=== PATIENT | female | born 1955 | race Caucasian/White ===

== ENCOUNTER 2023-03-06 13:11 | Outpatient (CLI) | payer MEDICARE | END 2023-03-06 13:12 | disposition home or self-care (01) | LOC: CSHMAMMO 13:11 | DX: Z12.31 Encounter for screening mammogram for malignant neoplasm of breast (principal); Z80.3 Family history of malignant neoplasm of breast; Z98.82 Breast implant status | CPT/HCPCS: 77063; 77067 ==

== ENCOUNTER 2025-01-06 20:28 | Emergency (ER) | payer MEDICARE ==
[2025-01-06] MEDS ORDERED: diphenhydrAMINE 25 MG CAP ONE (21:00)
== END 2025-01-06 21:05 | disposition home or self-care (01) ==
LOC: CSHERS 20:28
DX: S50.861A Insect bite (nonvenomous) of right forearm, initial encounter (principal); L08.9 Local infection of the skin and subcutaneous tissue, unspecified; W57.XXXA Bitten or stung by nonvenomous insect and other nonvenomous arthropods, initial encounter
CPT/HCPCS: 99281